=== PATIENT | female | born 1950 | race American Indian/Alaskan Native ===

== ENCOUNTER 2017-03-01 11:24 | Outpatient (CLI) | payer MEDICARE, OTHER ==
--- NOTE | 2017-03-01 13:13 | Mammography Report ---
Screening mammogram: Routine views are compared to prior exams dated back to 2014. Mild architectural distortion is noted in the anteromedial right breast from surgery. Stable circumscribed nodules noted bilaterally. The overall fibroglandular pattern is that of intermediate density in a generalized and symmetric distribution. CAD used. Impression: Stable breast pattern. Recommendation: Annual mammogram followup. BI-RADS CATEGORY: 1 = Negative ACR BI-RADS MAMMOGRAPHIC CODES: 0 = Needs additional imaging evaluation; 1 = Negative; 2 = Benign; 3 = Probably benign; 4 = Suspicious; 5 = Malignant; 6 = Known biopsy-proven malignancy COMMENT: 1. Dense breast tissue, i.e., adenosis, fibrocystic changes, etc., may obscure an underlying neoplasm. 2. Approximately 10% of cancers are not detected with mammography. 3. A negative mammography report should not delay biopsy if a clinically suspicious mass is present.
== END 2017-03-01 11:25 | disposition home or self-care (01) ==
LOC: SPVWC 11:24
PROVIDERS: ATTEND Internal Medicine
DX: Z12.31 Encounter for screening mammogram for malignant neoplasm of breast (principal); I10 Essential (primary) hypertension; E11.9 Type 2 diabetes mellitus without complications; J44.1 Chronic obstructive pulmonary disease with (acute) exacerbation; F32.9 Major depressive disorder, single episode, unspecified; F41.9 Anxiety disorder, unspecified
CPT/HCPCS: 77067; G0202

== ENCOUNTER 2017-06-15 09:17 | Outpatient (CLI) | payer MEDICARE, OTHER ==
--- NOTE | 2017-06-15 13:19 | XRay Report ---
XRAY RIGHT KNEE FOUR THREE VIEWS: 06/15/17 09:17:00 CLINICAL: Right knee pain. FINDINGS: Status post total knee replacement with normal appearance of the prosthesis. Moderate osteopenia. No fracture or dislocation. No joint effusion.Normal soft tissues. IMPRESSION: Normal study status post total knee replacement.
== END 2017-06-15 09:18 | disposition home or self-care (01) ==
LOC: SPVIMAG 09:17
PROVIDERS: ATTEND Orthopaedic Surgery
DX: M85.861 Other specified disorders of bone density and structure, right lower leg (principal); Z96.651 Presence of right artificial knee joint

== ENCOUNTER 2017-10-16 06:17 | Day surgery (SDC) | payer MEDICARE, OTHER ==
[2017-10-16] MEDS ORDERED: ROBINUL ONE (08:00)
[2017-10-16] MEDS ORDERED: NACL 0.9% 1000 ML 1,000 ML IV SCH (08:00)
[2017-10-16] MEDS ORDERED: DIPRIVAN 10 MG/ML IV ONE (08:49)
--- NOTE | 2017-10-16 09:03 | Anesthesia Consultation ---
Anesthesia Consult and Med Hx Date of service: 10/16/17 - Airway Anesthetic Teeth Evaluation: Edentulous ROM Head & Neck: Adequate Mental/Hyoid Distance: Adequate Mallampati Class: Class II Intubation Access Assessment: Probably Good - Pulmonary Exam CTA: Yes - Cardiac Exam Cardiac Exam: RRR - Pre-Operative Health Status ASA Pre-Surgery Classification: ASA3 Proposed Anesthetic Plan: MAC - Pulmonary Hx Smoking: Yes (quit 20 years ago ) Hx Sleep Apnea: Yes (no cpap use ) - Cardiovascular System Hx Hypertension: Yes (no meds) - Central Nervous System Hx Neuromuscular Disorder: Yes (numbness/tingling BLE) Hx Back Pain: Yes Hx Psychiatric Problems: Yes (depression)
--- NOTE | 2017-10-16 09:04 | Anesthesia Day of Surgery ---
Anesthesia Day of Surgery - Day of Surgery Patient Examined: Yes Patient H&P Reviewed: Yes Patient is NPO: Yes
[2017-10-16 10:15] VITALS: BP 153/92
--- NOTE | 2017-10-16 11:13 | Post Anesthesia Evaluation ---
- Post Anesthesia Evaluation Patient Participated: Yes Airway Patent: Yes Stable Respiratory Function: Yes Nausea/Vomiting: No Temp > 96.8F: Yes Pain Manageable: Yes Adequeate Hydration: Yes Anesthesia Complications: No
[2017-10-16] MEDS ORDERED: WATER FOR IRRIG STERILE IR ONE (12:25)
== END 2017-10-16 06:18 | disposition home or self-care (01) ==
LOC: GIO 06:17
PROVIDERS: ATTEND Specialist
DX: K28.9 Gastrojejunal ulcer, unspecified as acute or chronic, without hemorrhage or perforation (principal); K20.9 Esophagitis, unspecified; K59.00 Constipation, unspecified; I10 Essential (primary) hypertension; F32.9 Major depressive disorder, single episode, unspecified; G47.33 Obstructive sleep apnea (adult) (pediatric); Z79.899 Other long term (current) drug therapy; Z98.84 Bariatric surgery status; Z87.891 Personal history of nicotine dependence
CPT/HCPCS: 43235; 82962; J2704; J7030

== ENCOUNTER 2018-01-10 11:28 | Emergency (ER) | payer MEDICARE, OTHER ==
[2018-01-10 12:19] LABS: Basophils % (Auto) 0.4 % (0.0-1.8); Eosinophils # (Auto) 0.1 K/mm3 (0.0-0.4); Eosinophils % (Auto) 1.4 % (0.0-4.3); Hemoglobin 12.3 gm/dl (10.1-14.3); Lymphocytes # (Auto) 1.4 K/mm3 (1.2-5.4); Lymphocytes % (Auto) 15.3 % (13.4-35.0); Mean Corpuscular HGB Conc 33 % (30-34); Mean Corpuscular Hemoglobin 30 pg (28-32); Mean Corpuscular Volume 90 fl (79-97); Monocytes # (Auto) 0.7 K/mm3 (0.0-0.8); Monocytes % (Auto) 7.3 % (0.0-7.3); Platelet Count 290 K/mm3 (140-440); Red Blood Count 4.09 M/mm3 (3.65-5.03)
[2018-01-10 12:37] LABS: Albumin 3.1 g/dL (3.9-5); BUN/Creatinine Ratio 13; Blood Urea Nitrogen 8 mg/dL (7-17); Calcium 8.4 mg/dL (8.4-10.2); Hemolysis Index 137; Lipase 74 units/L (13-60)
--- NOTE | 2018-01-10 12:42 | Emergency Department Report ---
ED Abdominal Pain HPI - General Chief Complaint: Abdominal Pain Stated Complaint: ADOMINAL PAIN Time Seen by Provider: 01/10/18 11:41 Source: patient, EMS, old records reviewed Mode of arrival: Stretcher Limitations: No Limitations - History of Present Illness Initial Comments: Ms Beckham is a 67 year-old woman who presents with chronic abdominal pain. hx of HTN. had lapband from 2009 until 2011. Then had gastric bypass in 2012. Was just admitted to [facility] this week for abdominal pain and "low oxygen levels." Reports that the pain has been worse since discharge on Sunday. Gives us permission to request records. No chest pain, no shortness of breath. No back pain. No pain with urination. Loose stools, no blood in stool. Pain in her lower abdomen. better with rest. No vomiting, some nausea. EGD in October 2017 reports esophagitis, enterogastric reflux and a amrginal ulcer at the gastric-jejunal junction. MD Complaint: abdominal pain - Related Data Home Medications Medication Instructions Recorded Confirmed Last Taken Iron Fum,Ps/Folic/Bcomp,C No.9 1 cap PO DAILY 11/25/13 10/16/17 05/21/14 [Integra Plus Capsule] 1 Multivitamin/Iron/Folic Acid 1 tab PO QAM 11/25/13 10/16/17 05/21/14 [[employer] Women's Tab] 1 traZODone [Desyrel] 3 tab PO HS 11/25/13 10/16/17 10/15/17 Sertraline HCl 100 mg PO DAILY 12/17/13 10/16/17 10/15/17 Vit B12/Folic Acid/B6/Aa No.15 1 cap PO DAILY 05/22/14 10/16/17 05/21/14 [Glycotrol Capsule] buPROPion [Wellbutrin] 150 mg PO BID 05/22/14 10/16/17 10/15/17 Butalb/Acetamin/Caff 50-325-40 1 tab PO BID PRN 06/17/14 10/16/17 Unknown [Fioricet] Previous Rx's Medication Instructions Recorded Last Taken Type Amoxicillin/K Clav Tab [Augmentin 1 each PO Q12HR #20 tablet 06/20/14 Unknown Rx 875MG TAB] Benzonatate [Tessalon Perles] 100 mg PO Q8HR #30 capsule 06/20/14 Unknown Rx Ipratropium/Albuterol Sulfate 1 ampul IH Q6HRT #100 ampul.neb 06/20/14 Unknown Rx [DUONEB *Not for PRN Use*] predniSONE [Deltasone] 20 mg PO BID #14 tablet 06/20/14 Unknown Rx Diazepam Tab [Valium] 5 mg PO TID PRN #15 tablet 08/27/14 Unknown Rx Oxycodone HCl/Acetaminophen 1 each PO Q6HR PRN #20 tablet 08/27/14 Unknown Rx [Percocet 10-325 mg] Allergies Allergy/AdvReac Type Severity Reaction Status Date / Time No Known Allergies Allergy Verified 05/22/14 08:40 ED Review of Systems ROS: Stated complaint: ADOMINAL PAIN Other details as noted in HPI Comment: All other systems reviewed and negative ED Past Medical Hx - Past Medical History Hx Hypertension: Yes (no meds) Hx Diabetes: Yes Hx GERD: Yes Hx Arthritis: Yes - Surgical History Hx Cholecystectomy: Yes Hx Appendectomy: Yes Hx Breast Surgery: Yes Additional Surgical History: C-5 C-6 bone spur removal 08-25-14 - Social History Smoking Status: Former Smoker Substance Use Type: None - Medications Home Medications: Home Medications Medication Instructions Recorded Confirmed Last Taken Type Iron Fum,Ps/Folic/Bcomp,C No.9 1 cap PO DAILY 11/25/13 10/16/17 05/21/14 History [Integra Plus Capsule] 1 Multivitamin/Iron/Folic Acid 1 tab PO QAM 11/25/13 10/16/17 05/21/14 History [[employer] Women's Tab] 1 traZODone [Desyrel] 3 tab PO HS 11/25/13 10/16/17 10/15/17 History Sertraline HCl 100 mg PO DAILY 12/17/13 10/16/17 10/15/17 History Vit B12/Folic Acid/B6/Aa No.15 1 cap PO DAILY 05/22/14 10/16/17 05/21/14 History [Glycotrol Capsule] buPROPion [Wellbutrin] 150 mg PO BID 05/22/14 10/16/17 10/15/17 History Butalb/Acetamin/Caff 50-325-40 1 tab PO BID PRN 06/17/14 10/16/17 Unknown History [Fioricet] Amoxicillin/K Clav Tab [Augmentin 1 each PO Q12HR #20 tablet 06/20/14 10/16/17 Unknown Rx 875MG TAB] Benzonatate [Tessalon Perles] 100 mg PO Q8HR #30 capsule 06/20/14 10/16/17 Unknown Rx Ipratropium/Albuterol Sulfate 1 ampul IH Q6HRT #100 ampul.neb 06/20/14 10/16/17 Unknown Rx [DUONEB *Not for PRN Use*] predniSONE [Deltasone] 20 mg PO BID #14 tablet 06/20/14 10/16/17 Unknown Rx Diazepam Tab [Valium] 5 mg PO TID PRN #15 tablet 08/27/14 10/16/17 Unknown Rx Oxycodone HCl/Acetaminophen 1 each PO Q6HR PRN #20 tablet 08/27/14 10/16/17 Unknown Rx [Percocet 10-325 mg] ED Physical Exam - General Limitations: No Limitations General appearance: alert, in no apparent distress - Head Head exam: Present: atraumatic, normocephalic - Eye Eye exam: Present: normal appearance, PERRL, EOMI - ENT ENT exam: Present: normal exam, normal orophraynx, mucous membranes moist - Neck Neck exam: Present: normal inspection. Absent: tenderness - Respiratory Respiratory exam: Present: normal lung sounds bilaterally. Absent: respiratory distress, wheezes, rales - Cardiovascular Cardiovascular Exam: Present: regular rate, normal rhythm. Absent: systolic murmur, diastolic murmur, rubs, gallop - GI/Abdominal GI/Abdominal exam: Present: soft, tenderness, other (lower abdominal ttp, epigastric ttp, well healed surgical incisions, less [id number] palpable umbilical hernia, not reducibile). Absent: distended, guarding, rebound - Extremities Exam Extremities exam: Present: normal inspection - Back Exam Back exam: Present: normal inspection - Neurological Exam Neurological exam: Present: alert, oriented X3 - Psychiatric Psychiatric exam: Present: normal affect, normal mood - Skin Skin exam: Present: warm, dry, intact, normal color. Absent: rash ED Course Vital Signs 01/10/18 01/10/18 01/10/18 11:49 11:53 12:00 Temperature 99.2 F Pulse Rate 86 Respiratory 17 Rate Blood Pressure 135/75 135/75 135/75 O2 Sat by Pulse 97 93 96 Oximetry 01/10/18 01/10/18 01/10/18 12:20 12:31 12:45 Temperature Pulse Rate Respiratory Rate Blood Pressure O2 Sat by Pulse 96 95 95 Oximetry 01/10/18 01/10/18 13:00 13:13 Temperature Pulse Rate 67 Respiratory 17 Rate Blood Pressure 123/66 O2 Sat by Pulse 96 Oximetry ED Medical Decision Making - Lab Data Result diagrams: 01/10/18 12:07 01/10/18 12:07 Lab Results 01/10/18 01/10/18 Range/Units 12:07 12:07 WBC 9.3 (4.5-11.0) K/mm3 RBC 4.09 (3.65-5.03) M/mm3 Hgb 12.3 (10.1-14.3) gm/dl Hct 37.0 (30.3-42.9) % MCV 90 (79-97) fl MCH 30 (28-32) pg MCHC 33 (30-34) % RDW 15.0 (13.2-15.2) % Plt Count 290 (140-440) K/mm3 Lymph % (Auto) 15.3 (13.4-35.0) % [place] % (Auto) 7.3 (0.0-7.3) % Eos % (Auto) 1.4 (0.0-4.3) % Baso % (Auto) 0.4 (0.0-1.8) % Lymph # 1.4 (1.2-5.4) K/mm3 [place] # 0.7 (0.0-0.8) K/mm3 Eos # 0.1 (0.0-0.4) K/mm3 Baso # 0.0 (0.0-0.1) K/mm3 Seg Neutrophils % 75.6 H (40.0-70.0) % Seg Neutrophils # 7.0 (1.8-7.7) K/mm3 Sodium 137 (137-145) mmol/L Chloride 97.1 L (98-107) mmol/L Carbon Dioxide 29 (22-30) mmol/L BUN 8 (7-17) mg/dL Creatinine 0.6 L (0.7-1.2) mg/dL Estimated GFR > 60 ml/min BUN/Creatinine Ratio 13 % Glucose 88 (65-100) mg/dL Calcium 8.4 (8.4-10.2) mg/dL Total Bilirubin 0.30 (0.1-1.2) mg/dL Alkaline Phosphatase 69 (35-129) units/L Total Protein 6.2 L (6.3-8.2) g/dL Albumin 3.1 L (3.9-5) g/dL Albumin/Globulin Ratio 1.0 % Lipase 74 H (13-60) units/L - Radiology Data Radiology results: report reviewed - Medical Decision Making Ms Beckham is a 67 year-old woman who presents with abdominal pain. Sounds like acute on chronic. Known gastritis and marginal ulcer. Admitted this week at [facility]. Have requested results. Suspect this is gastritis vs chronic abd pain vs UTI vs partial obstruction vs strangulated hernia vs incarcerated hernia. Much less likely obstruction based on benign abdominal exam. Giving GI cocktail. Significant improvement in pain. On omeprazole, will also start on H2 alanis. Requested records from [facility], as she reported to [facility] had a CT scan there this week. Was CT PE, which was negative. Ordering CT abdomen/ pelvis without contrast to evaluate umbilical hernia. Unremarkable CT without evidence of hernia. Suspect i was palpating her umbilicus. Improvement with H2 alanis and GI cocktail. Home with H2 alanis and sucralfate prn. Given care instructions and return precautions. dc to home Critical care attestation.: If time is entered above; I have spent that time in minutes in the direct care of this critically ill patient, excluding procedure time. ED Disposition Clinical Impression: Abdominal pain Qualifiers: Abdominal location: generalized Qualified Code(s): R10.84 - Generalized abdominal pain Disposition: DC-01 TO HOME OR SELFCARE Is pt being admited?: No Does the pt Need Aspirin: No Condition: Stable Instructions: Abdominal Pain (ED), Gastritis (ED) Referrals: PRIMARY CARE, [Primary Care Provider] - 3-5 Days
[2018-01-10] MEDS ORDERED: PERCOCET 5/325 PO ONE (12:49)
[2018-01-10] MEDS ORDERED: ALUM-MAG HYDROX-SIMETH 200-200-20MG/5ML PO ONE (12:49)
[2018-01-10] MEDS ORDERED: LIDOCAINE VISCOUS 2% PO ONE (12:49)
[2018-01-10] MEDS ORDERED: PEPCID PO ONE (13:33)
[2018-01-10 13:47] LABS: Alanine Aminotransferase 8 units/L (7-56)
[2018-01-10 14:35] LABS: Bilirubin,Urine NEG (Negative); Blood,Urine NEG (Negative); Calcium Carbonate Crystals,Ur 1+; Color,Urine Amber (Yellow); Mucus,Urine FEW /HPF; Protein,Urine <15 mg/dL mg/dL (Negative)
--- NOTE | 2018-01-10 15:51 | Cat Scan Report ---
CT ABDOMEN PELVIS WITHOUT CONTRAST: HISTORY: Abdominal pain. COMPARISON: none. TECHNIQUE: Helical CT in 1.25mm intervals without IV contrast. Sagittal and coronal reconstructions. FINDINGS: Lung bases: Normal. Liver: Normal. Biliary system: Cholecystectomy. No biliary dilatation. Pancreas: Normal. Spleen: Normal. Kidneys/ureters/bladder: Normal. Adrenal glands: Normal. Aorta: Moderate diffuse calcifications. No aneurysm. Intestines: Limited without oral contrast. Surgical changes are noted in the stomach, mid small bowel and ileocecal region. Partial colectomy changes are suspected, correlate with history. Appendix: Not confidently identified. Pelvic viscera: Normal. Ascites: None. Adenopathy: None. Musculoskeletal: Moderate to severe degenerative changes noted at thoracolumbar junction. A neurostimulator device is partially imaged. No umbilical hernia is visualized. IMPRESSION: No acute processes identified in the abdomen or pelvis. Surgical changes as described.
[2018-01-10 16:09] VITALS: BP 126/72
== END 2018-01-10 16:31 | disposition home or self-care (01) ==
LOC: ED 11:28
DX: R10.84 Generalized abdominal pain (principal); I10 Essential (primary) hypertension; E11.9 Type 2 diabetes mellitus without complications; K21.9 Gastro-esophageal reflux disease without esophagitis; M19.90 Unspecified osteoarthritis, unspecified site; Z90.49 Acquired absence of other specified parts of digestive tract; Z87.891 Personal history of nicotine dependence
CPT/HCPCS: 36415; 74176; 80053; 81001; 83690; 85025

== ENCOUNTER 2018-02-20 11:00 | Outpatient (CLI) | payer MEDICARE, OTHER | END 2018-02-20 11:01 | disposition home or self-care (01) | LOC: SLR 11:00 | PROVIDERS: ATTEND Otolaryngology | DX: G47.33 Obstructive sleep apnea (adult) (pediatric) (principal); R06.83 Snoring; I10 Essential (primary) hypertension; E11.9 Type 2 diabetes mellitus without complications; F32.9 Major depressive disorder, single episode, unspecified; J44.1 Chronic obstructive pulmonary disease with (acute) exacerbation; K21.9 Gastro-esophageal reflux disease without esophagitis; E78.00 Pure hypercholesterolemia, unspecified; F41.9 Anxiety disorder, unspecified; Z87.891 Personal history of nicotine dependence; Z90.89 Acquired absence of other organs; Z90.49 Acquired absence of other specified parts of digestive tract; Z90.710 Acquired absence of both cervix and uterus; Z90.12 Acquired absence of left breast and nipple | CPT/HCPCS: 95810 ==

== ENCOUNTER 2018-03-04 09:54 | Outpatient (CLI) | payer MEDICARE, OTHER ==
--- NOTE | 2018-03-05 11:28 | Mammography Report ---
BILATERAL DIGITAL SCREENING MAMMOGRAM with CAD : 03/04/18 09:54:00 CLINICAL: Routine screening. COMPARISON:03/01/17 and 02/22/16 and 12/23/14 FINDINGS: The breasts are heterogeneously dense, which may obscure small masses. No mass, architectural distortion or suspicious calcifications. IMPRESSION: No mammographic evidence of malignancy. BI-RADS CATEGORY: 2 -- Benign RECOMMENDATION: Routine mammographic screening in one year. COMMENT: Patient follow-up letters are generated by our [employer] application.
== END 2018-03-04 09:55 | disposition home or self-care (01) ==
LOC: MAMMO 09:54
PROVIDERS: ATTEND Internal Medicine
DX: Z12.31 Encounter for screening mammogram for malignant neoplasm of breast (principal); I10 Essential (primary) hypertension; E11.9 Type 2 diabetes mellitus without complications; F32.9 Major depressive disorder, single episode, unspecified; E78.00 Pure hypercholesterolemia, unspecified; K21.9 Gastro-esophageal reflux disease without esophagitis; M19.90 Unspecified osteoarthritis, unspecified site; F41.9 Anxiety disorder, unspecified; Z90.49 Acquired absence of other specified parts of digestive tract; Z87.891 Personal history of nicotine dependence; Z90.12 Acquired absence of left breast and nipple
CPT/HCPCS: 77067

== ENCOUNTER 2018-03-20 10:27 | Outpatient (CLI) | payer MEDICARE, OTHER ==
[2018-03-20 11:13] LABS: Blood Urea Nitrogen 4 mg/dL (7-17)
--- NOTE | 2018-03-20 16:26 | Cat Scan Report ---
FINAL REPORT EXAM: CT ANGIO HEAD HISTORY: BRAIN CT ANGIO TECHNIQUE: CTA of the Head with IV contrast. Coronal and sagittal reconstructed imaging provided. PRIORS: None currently available. FINDINGS: Mild calcifications in the cavernous carotids. The anterior and posterior circulations appear unremarkable. There is no aneurysm, dissection, vascular malformation, or significant vascular stenosis. There is no evidence for vasculitis. 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 Chronic healed right lamina papyracea fracture noted. IMPRESSION: Unremarkable. Addendum will be may once requested history is provided.
== END 2018-03-20 10:28 | disposition home or self-care (01) ==
LOC: CT 10:27
PROVIDERS: ATTEND Internal Medicine
DX: R27.0 Ataxia, unspecified (principal); I10 Essential (primary) hypertension; E11.9 Type 2 diabetes mellitus without complications; J44.1 Chronic obstructive pulmonary disease with (acute) exacerbation; Z87.891 Personal history of nicotine dependence
CPT/HCPCS: 36415; 70496; 82565; 84520; Q9967

== ENCOUNTER 2018-04-16 07:24 | Inpatient (IN) | payer MEDICARE, OTHER ==
[2018-04-16] MEDS ORDERED: TRANSDERM-SCOP TD SCH (08:00)
[2018-04-16] MEDS ORDERED: ANCEF/STERILE WATER 2 GM/20 ML 2 GM/20 ML SYRINGE IV NR (08:00)
[2018-04-16] MEDS ORDERED: LACTATED RINGERS 1,000 ML IV SCH (08:00)
[2018-04-16] MEDS ORDERED: FLAGYL 500 MG/100 ML 500 MG/100 ML BAG IV NR (08:00)
[2018-04-16] MEDS ORDERED: LOVENOX SUB-Q NR (08:00)
[2018-04-16] MEDS ORDERED: NACL BACTERIOSTATIC INFILTRATI ONE (09:02)
[2018-04-16] MEDS ORDERED: DILAUDID ONE (09:30)
[2018-04-16] MEDS ORDERED: DIPRIVAN 10 MG/ML IV ONE (09:30)
[2018-04-16] MEDS ORDERED: ZEMURON IV ONE (09:31)
[2018-04-16] MEDS ORDERED: XYLOCAINE MPF 2% ONE (09:31)
[2018-04-16] MEDS ORDERED: LACTATED RINGERS 1,000 ML ONE ×2 (09:39→13:32)
[2018-04-16] MEDS ORDERED: LOVENOX SUB-Q ONE (09:39)
[2018-04-16] MEDS ORDERED: ANCEF/STERILE WATER 2 GM/20 ML 2 GM/20 ML SYRINGE IV ONE (09:39)
--- NOTE | 2018-04-16 09:41 | Anesthesia Day of Surgery ---
Anesthesia Day of Surgery - Day of Surgery Patient Examined: Yes Patient H&P Reviewed: Yes Patient is NPO: Yes
--- NOTE | 2018-04-16 09:41 | Anesthesia Consultation ---
Anesthesia Consult and Med Hx Date of service: 04/16/18 - Airway Anesthetic Teeth Evaluation: Edentulous ROM Head & Neck: Adequate Mental/Hyoid Distance: Adequate Mallampati Class: Class III Intubation Access Assessment: Possibly Difficult - Pulmonary Exam CTA: Yes - Cardiac Exam Cardiac Exam: RRR - Pre-Operative Health Status ASA Pre-Surgery Classification: ASA3 Proposed Anesthetic Plan: General - Pulmonary Hx Smoking: Yes (FOR 20 YEARS quit 20 years ago ) Hx Asthma: No Hx Respiratory Symptoms: No COPD: No Hx Sleep Apnea: Yes (noncompliant with CPAP) - Cardiovascular System Hx Hypertension: Yes (SINCE 2009, RESOLVED WITH WT LOSS,no meds) Hx Coronary Artery Disease: Yes (nonocclusive) Hx Heart Attack/AMI: No - Central Nervous System Hx Neuromuscular Disorder: Yes (numbness/tingling BLE) CVA: No Hx Back Pain: Yes (LOWER) Hx Psychiatric Problems: Yes - Gastrointestinal Hx Ulcer: Yes (takes omeprazole) - Endocrine Hx Renal Disease: No Hx Liver Disease: No Hx Non-Insulin Dependent Diabetes: Yes (previously "prediabetic" but resolved with weight loss; no meds) Hx Thyroid Disease: No - Hematic Hx Anemia: Yes (on iron supplement) - Other Systems Hx Alcohol Use: No Hx Substance Use: No Hx Cancer: No Hx Obesity: Yes - Additional Comments Anesthesia Medical History Comments: Per cardiology note, nonobstructive CAD with normal nuc perfusion study 02/2018. No hx anesthetic complications.
[2018-04-16] MEDS ORDERED: ZOFRAN IV PRN (09:48)
[2018-04-16] MEDS ORDERED: APRESOLINE IV PRN (09:48)
[2018-04-16] MEDS ORDERED: NORCO PO PRN (09:48)
[2018-04-16] MEDS ORDERED: MYLICON PO PRN (09:48)
[2018-04-16] MEDS ORDERED: REGLAN IV PRN (09:48)
[2018-04-16] MEDS ORDERED: MORPHINE IV PRN (09:48)
[2018-04-16] MEDS ORDERED: VERSED IV NR (10:00)
[2018-04-16 10:13] LABS: Bilirubin,Urine NEG (Negative); Blood,Urine NEG (Negative); Color,Urine Yellow (Yellow); Mucus,Urine FEW /HPF; Protein,Urine <15 mg/dL mg/dL (Negative); Urobilinogen,Urine < 2.0 mg/dL (<2.0)
[2018-04-16] MEDS ORDERED: MARCAINE-EPI 0.5%-1:200,000 INFILTRATI ONE ×2 (10:39→12:53)
[2018-04-16] MEDS ORDERED: XYLOCAINE 1% 20 mL ONE (10:45)
[2018-04-16] MEDS ORDERED: XYLOCAINE 1% 20 mL INFILTRATI ONE (12:54)
[2018-04-16] MEDS ORDERED: NACL 0.9% IR ONE (12:54)
[2018-04-16] MEDS ORDERED: DILAUDID IV PRN (13:01)
[2018-04-16] MEDS ORDERED: DECADRON ONE (13:06)
[2018-04-16] MEDS ORDERED: ZOFRAN ONE (13:06)
[2018-04-16] MEDS ORDERED: ROBINUL ONE (13:17)
[2018-04-16] MEDS ORDERED: SUBLIMAZE ONE (13:17)
[2018-04-16] MEDS ORDERED: BLOXIVERZ ONE (13:17)
--- NOTE | 2018-04-16 14:07 | Operative Report ---
Operative Report Operative Report: OPERATIVE REPORT DATE OF PROCEDURE: 04/16/18 SURGEON: Naresh Mason MD GEOSPATIAL ENGINEER: Sravani Gilmore CSA, MD PREOPERATIVE DIAGNOSES: 1. Enterogastric reflux 2. Failed or complication of gastrojejunal anastomosis 3. Chronic dyspepsia POSTOPERATIVE DIAGNOSES: Same PROCEDURES PERFORMED: 1. Laparoscopic revision of gastrojejunostomy 2. Partial gastrectomy 3. Adhesiolysis 4. Intraoperative endoscopy ANESTHESIA: General. SPECIMENS: Partial gastrectomy. ESTIMATED BLOOD LOSS: Less than 30 mL. COMPLICATIONS: None. INDICATION: Patient is a 67 year old female who had a gastric bypass many years ago, as well as many other operations, and has since began to experience abdominal pain, chronic dyspepsia and weight regain. A recently performed EGD showed the patient had dilation of her gastric pouch. She wished to undergo revision. The risks, complications, and alternatives were explained, and informed consent was obtained. DESCRIPTION OF PROCEDURE: The patient was brought to the operating suite and laid in the supine position. She was given preoperative antibiotics and DVT prophylaxis. General anesthesia was induced and she was prepped and draped in the usual sterile fashion. A time out was called. A small incision was made at the base of the umbilicus and a veress needle was inserted with insufflation to a pressure of 15 mmHg. The incision was widened and a 12mm trocar was placed. No gross injury to any abdominal structures were noted below the site of entry. An additional 12mm trocar was placed in the right quadrant and two 5 mm ports in the epigastric and right upper quadrant. An additional 5mm trocar was placed in the left upper quadrant. A liver retractor was placed and the patient was repositioned in steep reverse [place]. Adhesions to the undersurface of the liver were lysed. Using the hook cautery and the Ligausure device, the gastric pouch was from the remnant stomach. An endoscope was inserted and the pouch was noted to be large but the GJ anastomosis was approximately 15 mm. The gastric pouch was decreased in size by stapling via a blue load to the lateral portion of the pouch. The pouch was further imbricated with 2-0 V-Loc to decrease the size. The scope passed into the jejunal portion with no difficulty,and then the air was suctioned from the pouch and abdi limb. The partial gastrectomy specimen was removed from the umbilical port site. The abdomen was desufflated and all trocars removed under direct visualization. The umbilical fascia was closed via a #1 PDS. The skin incisions were closed with 4-0 Monocryl; sterile bandages and tape were placed overtop. Patient was awoken and taken to recovery in stable condition. All counts were correct.
[2018-04-16] MEDS: DILAUDID IV PRN ×2 (18:04→21:22)
[2018-04-16] MEDS: LACTATED RINGERS 1,000 ML IV SCH (20:37)
[2018-04-16] MEDS: WELLBUTRIN PO SCH (21:22)
[2018-04-16] MEDS ORDERED: DESYREL PO SCH (22:00)
[2018-04-17] MEDS: LACTATED RINGERS 1,000 ML IV SCH ×2 (02:52→09:32)
[2018-04-17] MEDS: DILAUDID IV PRN ×2 (05:35→09:22)
[2018-04-17 05:39] LABS: Hematocrit 33.5 % (30.3-42.9); Hemoglobin 11.2 gm/dl (10.1-14.3); Mean Corpuscular HGB Conc 33 % (30-34); Mean Corpuscular Hemoglobin 30 pg (28-32); Mean Corpuscular Volume 91 fl (79-97); Platelet Count 218 K/mm3 (140-440); Red Blood Count 3.69 M/mm3 (3.65-5.03); Red Cell Distribution Width 14.7 % (13.2-15.2)
[2018-04-17 06:02] LABS: BUN/Creatinine Ratio 9; Blood Urea Nitrogen 6 mg/dL (7-17); Calcium 8.5 mg/dL (8.4-10.2); Hemolysis Index 1
[2018-04-17 06:44] LABS: Band Neutrophils # (Manual) 0.3 K/mm3; Basophils % (Manual) 0 % (0.0-1.8); Eosinophils % (Manual) 0 % (0.0-4.3); Monocytes % (Manual) 0 % (0.0-7.3); Platelet Estimate Consistent w Auto; Total Cells Counted 100
--- NOTE | 2018-04-17 07:02 | Progress Note ---
Assessment and Plan 67F dyspepsia, obesity s/p lap GJ revision, PETER 04/17/18 #1 dyspepsia s/p lap GJ revsiions - bariatric CLD - pain control PRN - ambulate encourage - IS use - discussed postop care and diet in detail Dispo: home today Subjective Date of service: 04/17/18 Principal diagnosis: Obesity, dyspepsia Interval history: No issues overnight. Tolerated CLD. Ambulated in halls. Objective - Exam Narrative Exam: GEN: AAO, NAD, elderly HEENT: Anicteric HEART: RRR LUNGS: CTAB ABD: Soft, NT, ND, bandages c/d/i EXT: No LE edema - Constitutional Vitals: Vital Signs - 12hr 04/16/18 04/17/18 04/17/18 20:32 00:02 04:19 Temperature 98.5 F 98.1 F 98.5 F Pulse Rate 79 95 H 55 L Respiratory 17 17 18 Rate Blood Pressure 135/75 108/63 103/42 O2 Sat by Pulse 99 91 96 Oximetry 04/17/18 04:20 Temperature Pulse Rate 75 Respiratory Rate Blood Pressure O2 Sat by Pulse 97 Oximetry - Labs CBC & Chem 7: 04/17/18 04:56 04/17/18 04:56 Labs: Abnormal lab results 04/17/18 04/17/18 Range/Units 04:56 04:56 Seg Neuts % (Manual) 89.0 H (40.0-70.0) % Lymphocytes % (Manual) 8.0 L (13.4-35.0) % Seg Neutrophils # Man 8.6 H (1.8-7.7) K/mm3 Lymphocytes # (Manual) 0.8 L (1.2-5.4) K/mm3 BUN 6 L (7-17) mg/dL Glucose 106 H (65-100) mg/dL
--- NOTE | 2018-04-17 07:05 | Discharge Summary ---
Providers - Providers Date of Admission: 04/16/18 07:24 Date of discharge: 04/17/18 Attending physician: FARIBA MASON Primary care physician: BRYNN BOLIVAR Hospitalization Reason for admission: postop care Condition: Good Procedures: 04/16/18: Laparoscopic gastrojejunostomy revision, upper endoscopy Hospital course: 67F admitted after operation for routine monitoring. She had an unremarkable course. No issues. Tolerated a CLD, ambulated, sent home on POD#1. Disposition: DC-01 TO HOME OR SELFCARE Core Measure Documentation - Palliative Care Palliative Care/ Comfort Measures: Not Applicable - Core Measures Any of the following diagnoses?: none - VTE Discharge Requirements Deep Vein Thrombosis/Pulmonary Embolism Present on Admission: No - Acute PA Discharge Requirements Aspirin at discharge: No Reason for no aspirin on DC: Surgical contraindication - Heart Failure Discharge Requirements ROSEANNE/ARB for LVSD if EF <40%: Not Applicable - Stroke Discharge Requirements Statin for LDL = or >70 mg/dl on DC: Not Applicable Exam - Physical Exam Narrative exam: GEN: AAO, NAD, elderly HEENT: Anicteric HEART: RRR LUNGS: CTAB ABD: Soft, NT, ND, bandages c/d/i EXT: No LE edema - Constitutional Vitals: Temp Pulse Resp BP Pulse Ox 98.5 F 75 18 103/42 97 04/17/18 04:19 04/17/18 04:20 04/17/18 04:19 04/17/18 04:19 04/17/18 04:20 Plan Diet: other (bariatric CLD) Wound: keep clean and dry, change dressing Additional Instructions: f/u Dr Mason as already scheduled Follow up with: BRYNN BOLIVAR MD [Primary Care Provider] - 7 Days
[2018-04-17] MEDS: WELLBUTRIN PO SCH ×2 (09:22→13:48)
[2018-04-17] MEDS ORDERED: ZOLOFT PO SCH (10:00)
[2018-04-17] MEDS ORDERED: LOVENOX SUB-Q SCH (10:00)
[2018-04-17 12:04] VITALS: BP 146/62
== END 2018-04-17 14:45 | disposition home or self-care (01) | DRG 328 ==
LOC: 3A 07:24 → 3B-SURG 15:04
PROVIDERS: ADMIT Specialist; ATTEND Specialist
PROC: 0D164ZA Bypass Stomach to Jejunum, Percutaneous Endoscopic Approach (ICD-10-PCS; principal; 2018-04-16)
PROC: 0DB64ZZ Excision of Stomach, Percutaneous Endoscopic Approach (ICD-10-PCS; 2018-04-16)
DX: K91.89 Other postprocedural complications and disorders of digestive system (principal); R10.13 Epigastric pain; Y83.2 Surgical operation with anastomosis, bypass or graft as the cause of abnormal reaction of the patient, or of later complication, without mention of misadventure at the time of the procedure; G47.30 Sleep apnea, unspecified; I10 Essential (primary) hypertension; I25.10 Atherosclerotic heart disease of native coronary artery without angina pectoris; E11.9 Type 2 diabetes mellitus without complications; D64.9 Anemia, unspecified; E66.9 Obesity, unspecified; Z68.32 Body mass index [BMI] 32.0-32.9, adult; Z87.891 Personal history of nicotine dependence; Y92.89 Other specified places as the place of occurrence of the external cause; Z79.84 Long term (current) use of oral hypoglycemic drugs; K21.9 Gastro-esophageal reflux disease without esophagitis
CPT/HCPCS: 36415; 80048; 81001; 82565; 85007; 85025; 88307; A9270-GY; J0690; J1100; J1170; J1650; J2250; J2405; J2704; J2710; J3010; J7120

== ENCOUNTER 2018-09-23 13:59 | Outpatient (CLI) | payer MEDICARE, OTHER ==
[2018-09-23 14:42] LABS: Bilirubin,Urine NEG (Negative); Blood,Urine NEG (Negative); Color,Urine Yellow (Yellow); Mucus,Urine FEW /HPF; Protein,Urine <15 mg/dL mg/dL (Negative); Urobilinogen,Urine < 2.0 mg/dL (<2.0)
[2018-09-23 15:41] LABS: Basophils % (Auto) 0.3 % (0.0-1.8); Eosinophils # (Auto) 0.1 K/mm3 (0.0-0.4); Eosinophils % (Auto) 2.3 % (0.0-4.3); Hematocrit 37.5 % (30.3-42.9); Hemoglobin 12.4 gm/dl (10.1-14.3); Lymphocytes # (Auto) 1.7 K/mm3 (1.2-5.4); Mean Corpuscular HGB Conc 33 % (30-34); Mean Corpuscular Volume 90 fl (79-97); Monocytes # (Auto) 0.4 K/mm3 (0.0-0.8); Monocytes % (Auto) 7.6 % (0.0-7.3); Platelet Count 243 K/mm3 (140-440); Red Blood Count 4.17 M/mm3 (3.65-5.03); Red Cell Distribution Width 15.6 % (13.2-15.2)
[2018-09-23 15:52] LABS: INR 0.87 (0.87-1.13)
== END 2018-09-23 14:00 | disposition home or self-care (01) ==
LOC: LAB 13:59
PROVIDERS: ATTEND Anesthesiology
DX: Z79.01 Long term (current) use of anticoagulants (principal); I10 Essential (primary) hypertension; J44.9 Chronic obstructive pulmonary disease, unspecified; E11.9 Type 2 diabetes mellitus without complications; E78.00 Pure hypercholesterolemia, unspecified; E66.9 Obesity, unspecified; Z90.49 Acquired absence of other specified parts of digestive tract; Z90.710 Acquired absence of both cervix and uterus
CPT/HCPCS: 36415; 81001; 85025; 85610